=== PATIENT | female | born 1980 | race Caucasian/White ===

== ENCOUNTER 2017-11-22 10:32 | Emergency (ER) | payer MEDICAID, SELFPAY ==
[2017-11-22 10:33] VITALS: BP 157/100; PULSE 128; RESP 20; TEMP 36.9; O2SAT 100; BMI 16.0
--- NOTE | 2017-11-22 11:09 | CT_ITS ---
STUDY: CT BRAIN WITHOUT CONTRAST REASON FOR EXAM: Female, 37 years old. WALSH X 2 WKS, ANXIETY ATTACK, HX-HEART MURMUR. RADIATION DOSAGE (If Supplied By Facility): CTDIvol = ( 44.99 ) mGy, DLP = ( 694.87 ) mGycm TECHNIQUE: Transaxial CT imaging of the brain was performed without administration of intravenous contrast material. Individualized dose optimization techniques were used for this CT. COMPARISON: None. FINDINGS: Normal soft tissue structures. Normal calvarium. Normal size ventricles and extra-axial spaces for the patient's age. Normal white matter tracts of the cerebral hemispheres. Normal basal ganglia and thalami. Normal brainstem. Normal cerebellum. There is no intracranial hemorrhage. There are no findings of an acute ischemic infarction. Normal visualized paranasal sinuses. CT/Brain/Head without Contrast IMPRESSION: Normal unenhanced CT scan of the brain. Electronically Signed: Lex Cavanaugh MD at 12:02 EDT Tel , Service support ,
[2017-11-22] MEDS: 0.9% Normal Saline 1,000 ML 1000 ML IV (11:21)
--- NOTE | 2017-11-22 11:22 | ED.VISSUMM ---
- ER Visit Summary Date of Service: 11/22/17 Chief Complaint: Headache History of Present Illness: The patient is a 37 F who presents with a headache that has been constant for the past 2 weeks. Patient states the pain started as a generalized headache but is now on the right side of her head. Patient states that yesterday she felt a pop in the right frontal area of her head and states her headache became worse after this. Patient states she does have some numbness behind her right ear. Patient admits to some pressure behind her right eye. Patient admits to some nausea and vomiting. Patient denies any extremity weakness or paresthesias. Patient denies any neck pain. He denies any fevers or chills. Physical Examination: Vital signs are stable. Patient is afebrile. Patient is in no acute distress. Pupils are equal, round, and reactive to light bilaterally. Extraocular muscles are intact. Tympanic membranes are clear bilaterally. Oral mucosa is pink and moist. Heart was regular rate and rhythm. Lungs are clear and equal bilaterally. Abdomen is soft and nontender. Cranial nerves II through XII are intact. Strength is 5/5 bilaterally. There are no sensory deficits noted. The remaining physical exam is within normal limits. Test Results: CT scan of the brain was obtained and did not show any acute joint abnormality. Emergency Department Course and Treatment: Patient was given IV fluids, Compazine, and Benadryl here. Patient felt better on reevaluation. Patient was instructed to rest in a dark quiet room. Patient was instructed to follow-up with her primary care physician in 7-10 days. Patient understood and was agreeable with the plan. All questions were answered. Disposition: Discharge home Impression: Headache This note was generated with [employer] dictation software. It may contain incorrect words, spelling, and punctuation that were not noted in review of the chart prior to signing ED Disposition - Plan for ED Patient: Disposition: Home or Assisted Living Chief Complaint: Headache Diagnosis: Headache Instructions: ED Headache Migraine Referrals: John Stubbs [Primary Care Provider] -
[2017-11-22] MEDS: DiphenhydrAMINE 50 MG/ML Syringe 25 MG IV (11:23)
[2017-11-22] MEDS: proCHLORPERazine 10 MG/2 ML Vial IV (11:23)
[2017-11-22 13:22] VITALS: BP 122/77; PULSE 99; RESP 16; O2SAT 100
== END 2017-11-22 13:23 | disposition home or self-care (01) ==
PROVIDERS: Emergency Provider Emergency Medicine; Family Provider Family Medicine; PCP Family Medicine
DX: R51 Headache (principal); R20.2 Paresthesia of skin; R11.2 Nausea with vomiting, unspecified
CPT/HCPCS: 70450; 96361; 96374; 96375; 99283; J7030

== ENCOUNTER 2018-08-11 10:34 | Emergency (ER) | payer MEDICAID, SELFPAY ==
[2018-08-11 10:36] VITALS: BP 137/85; PULSE 92; RESP 14; TEMP 36.4; O2SAT 100; BMI 16.9
--- NOTE | 2018-08-11 11:04 | RAD_ITS ---
STUDY: X-RAY - RIGHT ANKLE REASON FOR EXAM: Female, 37 years old. Pain. No known injury. TECHNIQUE: 3 view(s) of the ankle. COMPARISON: None. FINDINGS: Normal visualized distal tibia and fibula. Normal medial and lateral malleoli. Normal tibiotalar articulation and ankle mortise. Normal visualized talus and calcaneus. The visualized subtalar, talonavicular, calcaneocuboid and tarsal articulations are normal. The soft tissue structures are unremarkable. RAD/Ankle min 3 Views IMPRESSION: Normal x-ray examination of the ankle. Electronically Signed: Navjot Watters MD at 12:55 EST Tel [phone], Service support ,
--- NOTE | 2018-08-11 11:19 | ED.DCSUM_ITS ---
- ER Visit Summary Date of Service: 08/11/18 Chief Complaint: Right ankle pain History of Present Illness: The patient is a 37 F with increasing right ankle pain. The pain is in her right ankle diffusely and she has numbness to the bottom of her foot. This has been gradually getting worse over days. She never had this before. Denies any trauma. Denies any history of blood clots, DVTs, or swelling. Denies any history of arterial disease or coronary disease. Denies any history of smoking. Denies fevers or systemic symptoms. Her symptoms are worse with ambulation and better with elevation and rest. Physical Examination: Afebrile and vital signs unremarkable. The patient appears in no acute distress. Inspection of her right lower extremity is unremarkable. Skin appears normal. No ulcers or discoloration. Good capillary refill and good pulses, symmetric. Good range of motion. Good strength and objective sensation. She does report some subjective numbness to the bottom of her foot. She has pain on palpation diffusely to her right ankle, but it is otherwise unremarkable. No deformities or laxity noted. Test Results: X-ray and TALITA pending. Emergency Department Course and Treatment: I suspect this is just some type of osteoarthritis or mild degenerative process. I am concerned that she has not had trauma and her symptoms seem to be getting worse. We will check x-rays and ABIs. There is nothing to suggest DVT or joint infection. Nothing to suggest a systemic infectious or inflammatory process. ABIs unremarkable. X-ray unremarkable. I have low suspicion for peripheral arterial disease. I suspect this is some type of arthralgia. No other diagnostic testing is indicated. Patient treated with an Aircast and crutches. Anti-inflammatories for pain. Follow-up with primary care. Treatment Plan: As above Disposition: Discharge Impression: 1. Right ankle pain This note was generated with [employer] software. It may contain incorrect words, spelling, and punctuation that were not noted in review of the chart prior to signing ED Disposition - Plan for ED Patient: Chief Complaint: Lower Extremity Injury Referrals: John Stubbs [Primary Care Provider] -
[2018-08-11 12:29] VITALS: BP 140/75; PULSE 81; RESP 16; O2SAT 100
--- NOTE | 2018-08-11 13:12 | ED.DEP ---
ED Disposition - Plan for ED Patient: Chief Complaint: Lower Extremity Injury Instructions: ED RICE Prescriptions: Ibuprofen [Motrin] 800 mg PO TID PRN PRN #20 tab PRN Reason: Pain Referrals: John Stubbs [Primary Care Provider] -
--- NOTE | 2018-08-18 20:23 | LEAS ---
Arterial Study - Arterial Study Arterial Study: This is a 37-year-old female who presents with lower extremity pain. Suspecting the presence of atherosclerotic peripheral arterial occlusive disease or an occlusive arterial process, the patient was brought to the noninvasive vascular laboratory at this time for the purpose of bilateral noninvasive lower extremity arterial assessment. Doppler signal assessment was used to evaluate the pulses at ankle level bilaterally. The posterior tibial and dorsalis pedis pulses were triphasic bilaterally. Segmental limb pressures were obtained at ankle level bilaterally. The right ankle pressure, as determined by posterior tibial pulse, was measured at 152 mmHg. The right ankle pressure, as determined by dorsalis pedis pulse, was measured at 147 mmHg. The left ankle pressure, as determined by posterior tibial pulse, was measured at 149 mmHg. The left ankle pressure, as determined by dorsalis pedis pulse, was measured at 139 mmHg. Pulse?volume recordings were obtained at ankle and digital levels bilaterally. Waveform amplitudes appeared to be satisfactory bilaterally. Resting ankle?brachial indices were calculated bilaterally. The resting right ankle?brachial index was calculated to be 1.02. The resting left ankle?brachial index was calculated to be 1.00. Impression: Based upon the findings of this resting noninvasive lower extremity arterial study, there is no evidence of significant atherosclerotic peripheral arterial occlusive disease in the lower extremities bilaterally. Triphasic waveforms were noted at ankle level bilaterally. Resting ankle-brachial indices were bilaterally normal. In summary, this represents a normal resting noninvasive lower extremity arterial study bilaterally.
--- OUTSIDE RECORDS SUMMARY | 2018-09-27 12:12 | XMS RPT_ITS | Clinical Summary ---
:1980 Author Organization [facility], [facility] Address [address] [place] [address] Phone Care Team Providers Name Role Phone Vasu SILVA, Fredy Chowdhury Unavailable Conditions or Problems Problem Name Problem Onset Status Entry Provider Comment Standard Annotate Code Date Date Description Suture 23372215 Active Fredy Chowdhury Removal of removal (SNOMED CT) / Vasu SILVA suture Laceration S61.210A Active Fredy Chowdhury Laceration without (ICD-10-CM) / Vasu SILVA without foreign body foreign body of right of right index finger index finger without without damage to damage to nail, initial nail, initial encounter encounter Medications Medication Instructions Start Date Stop Date Generic Name NDC Provider Observed no known medications at Medications Administered No information available. Allergies, Adverse Reactions, Alerts Allergy Name Reaction Description Start Date Severity Status Provider VICODIN Critical Active Fredy SILVA Results Date Name Value Unit Range Flag Description Office Visit: [facility]: RIF Laceration FALLRSKASSES No Fall risk assessment Office Visit: [facility]: RIF laceration recheck MEDS REVIEW Done Documentation of current medications (procedure) NKMED T Documentation of current medications (procedure) ORALTOBACUSE Never Tobacco smoking status NHIS SMOK STATUS Never smoker Tobacco use [facility] Plan of Care No information available. Procedures Code Procedure Name Date Entry Date CPT-PREDS Pre-employment drug screen Vital Signs Date Name Value Unit Description BMI (Body Mass Index) 16.56 kg/m2 Body Mass Index [Ratio] Body Temperature 99.3 [degF] temperature E&M BP Diastolic 70 mm[Hg] blood pressure, diastolic - 8462-4 BP Systolic 114 mm[Hg] blood pressure, systolic - 8480-6 Heart Rate 90 /min pulse rate E&M - 8867-4 Height 63.5 [in_us] height E&M - 8302-2 Respiratory Rate 16 /min respiratory rate E&M - 9279-1 Weight Measured 95 [lb_av] weight E&M - 3141-9
--- OUTSIDE RECORDS SUMMARY | 2018-09-27 12:13 | XMS RPT_ITS | Clinical Summary ---
:1980 Author Organization [facility] Address [address] [place] [address] Phone Care Team Providers Name Role Phone Vasu SILVA, Fredy Chowdhury Unavailable Conditions or Problems Problem Name Problem Onset Status Entry Provider Comment Standard Annotate Code Date Date Description Laceration S61.210A Fredy Chowdhury Laceration without (ICD-10-CM Vasu SILVA without foreign body ) foreign body of right of right index [...] Value Unit Range Flag Description Office Visit: [facility]: RIF Laceration MEDS REVIEW Done Documentation of current medications (procedure) NKMED T Documentation of current medications (procedure) FALLRSKASSES No Fall risk assessment SMOK STATUS Never smoker Tobacco use [facility] Plan of Care Type Date Detail Appointment 10:00 AM Fredy SILVA, [address] [place] [address], [place], [address], Appointment 10:[address] [place] [address], [place], [address], Appointment 03:30 PM Fredy SILVA, [address] [place] [address], [place], [address], Procedures Code Procedure Name Date Entry Date CPT-PREDS Pre-employment drug screen Vital Signs Date Name Value Unit Description BMI (Body Mass Index) 16.56 kg/m2 Body Mass Index [Ratio] Body Temperature 98.7 [degF] temperature E&M BP Diastolic 64 mm[Hg] blood pressure, diastolic - 8462-4 BP Systolic 112 mm[Hg] blood pressure, systolic - 8480-6 Heart Rate 92 /min pulse rate E&M - 8867-4 Height 63.5 [in_us] height E&M - 8302-2 Respiratory Rate 15 /min respiratory rate E&M - 9279-1 Weight Measured 95.0 [lb_av] weight E&M - 3141-9
--- OUTSIDE RECORDS SUMMARY | 2018-09-27 12:13 | XMS RPT_ITS | Clinical Summary ---
:1980 Author Organization [facility], [facility] Address [address] [place] [address] Phone Care Team Providers Name Role Phone Vasu SILVA, Fredy Chowdhury Unavailable Conditions or Problems Problem Name Problem Onset Status Entry Provider Comment Standard Annotate Code Date Date Description Suture [id number] Active Fredy Chowdhury Removal of removal (SNOMED [...] Value Unit Range Flag Description Office Visit: [facility]: RIF Laceration F[place]RSKASSES No Fall risk assessment Office Visit: [facility]: RIF laceration recheck MEDS REVIEW Done Documentation of current medications (procedure) NKMED T Documentation of current medications (procedure) ORALTOBACUSE Never Tobacco smoking status NHIS SMOK STATUS Never smoker Tobacco use [facility] Plan of Care Type Date Detail Appointment 03:30 PM Fredy SILVA, [facility], [address], [place], [address], Procedures Code Procedure Name Date Entry Date [...]
--- OUTSIDE RECORDS SUMMARY | 2018-09-27 12:13 | XMS RPT_ITS | Clinical Summary ---
:1980 Author Organization [facility], [facility] Address [address] [place] [address] Phone Care Team Providers Name Role Phone Vasu SILVA, Fredy Chowdhury Unavailable Conditions or Problems Problem Name Problem Onset Status Entry Provider Comment Standard Annotate Code Date Date Description Suture [id number] Active Fredy Chowdhury Removal of removal (SNOMED [...] Value Unit Range Flag Description Office Visit: [facility]: RIF Laceration F[place]RSKASSES No Fall risk assessment Office Visit: [facility]: RIF laceration recheck MEDS REVIEW Done Documentation of current medications (procedure) NKMED T Documentation of current medications (procedure) ORALTOBACUSE Never Tobacco smoking status NHIS SMOK STATUS Never smoker Tobacco use [facility] Plan of Care No information available. Procedures [...]
--- OUTSIDE RECORDS SUMMARY | 2018-09-27 12:13 | XMS RPT_ITS ---
:1980 Author Organization OH[facility] Care Team Providers Name Role Phone John Stubbs Primary Care Unavailable Rodo Albert Attending Unavailable John Stubbs Primary Care Unavailable Jori Johnson Attending Unavailable PROBLEMS PROBLEMS No Problem Records FoundPROCEDURES PROCEDURES No Procedure Records FoundRESULTS RESULTS LOWER EXT ARTERIAL Observed: 08/18/2018 Status: F Source: [place] STUDY 8:27 PM [facility] Cardiovascular Services [address] [place] [address] 08/18/182022 MR#: [id number] Acct: [id number] Name: ROBERTO ZAYAS Rep #: [id number] : 1980 37 From: Curtis Jerez MD Attending Dr: Status: DEP ER Ordering Dr: Date: 08/18/18 Location: ED Sex: F C Admitted: Arterial Study - Arterial Study Arterial Study: This is a 37-year-old female who presents with lower extremity pain. Suspecting the presence of atherosclerotic peripheral arterial occlusive disease or an occlusive arterial process, the patient was brought to the noninvasive vascular laboratory at this time for the purpose of bilateral noninvasive lower extremity arterial assessment. Doppler signal assessment was used to evaluate the pulses at ankle level bilaterally. The posterior tibial and dorsalis pedis pulses were triphasic bilaterally. Segmental limb pressures were obtained at ankle level bilaterally. The right ankle pressure, as determined by posterior tibial pulse, was measured at 152 mmHg. The right ankle pressure, as determined by dorsalis pedis pulse, was measured at 147 mmHg. The left ankle pressure, as determined by posterior tibial pulse, was measured at 149 mmHg. The left ankle pressure, as determined by dorsalis pedis pulse, was measured at 139 mmHg. Pulse volume recordings were obtained at ankle and digital levels bilaterally. Waveform amplitudes appeared to be satisfactory bilaterally. Resting ankle brachial indices were calculated bilaterally. The resting right ankle brachial index was calculated to be 1.02. The resting left ankle brachial index was calculated to be 1.00. Impression: Based upon the findings of this resting noninvasive lower extremity arterial study, there is no evidence of significant atherosclerotic peripheral arterial occlusive disease in the lower extremities bilaterally. Triphasic waveforms were noted at ankle level bilaterally. Resting ankle-brachial indices were bilaterally normal. In summary, this represents a normal resting noninvasive lower extremity arterial study bilaterally. 08/18/182026 <Electronically signed by Curtis Jerez MD> Date Curtis Jerez MD CC: Rodo Albert MD; John Stubbs MD Date Dictated: 08/18/182022 Date Transcribed: 08/18/182022 Embedded Linux Engineer: SOLE William EMERGENCY DEPARTMENT Observed: 08/11/2018 Status: F Source: [place] SUMMARY 3:36 PM [facility] Medical Records Department [address] [place] [address] Emergency Department Summary 08/11/18 1116 MR#: [id number] Acct: [id number] Name: ROBERTO ZAYAS Rep #: [id number] : 1980 37 From: Rodo Albert MD PCP: John Stubbs MD Status: DEP ER - ER Visit Summary Date of Service: 08/11/18 Chief Complaint: Right ankle pain History of Present Illness: The patient is a 37 F with increasing right ankle pain. The pain is in her right ankle diffusely and she has numbness to the bottom of her foot. This has been gradually getting worse over days. She never had this before. Denies any trauma. Denies any history of blood clots, DVTs, or swelling. Denies any history of arterial disease or coronary disease. Denies any history of smoking. Denies fevers or systemic symptoms. Her symptoms are worse with ambulation and better with elevation and rest. Physical Examination: Afebrile and vital signs unremarkable. The patient appears in no acute distress. Inspection of her right lower extremity is unremarkable. Skin appears normal. No ulcers or discoloration. Good capillary refill and good pulses, symmetric. Good range of motion. Good strength and objective sensation. She does report some subjective numbness to the bottom of her foot. She has pain on palpation diffusely to her right ankle, but it is otherwise unremarkable. No deformities or laxity noted. Test Results: X-ray and TALITA pending. Emergency Department Course and Treatment: I suspect this is just some type of osteoarthritis or mild degenerative process. I am concerned that she has not had trauma and her symptoms seem to be getting worse. We will check x-rays and ABIs. There is nothing to suggest DVT or joint infection. Nothing to suggest a systemic infectious or inflammatory process. ABIs unremarkable. X-ray unremarkable. I have low suspicion for peripheral arterial disease. I suspect this is some type of arthralgia. No other diagnostic testing is indicated. Patient treated with an Aircast and crutches. Anti-inflammatories for pain. Follow-up with primary care. Treatment Plan: As above Disposition: Discharge Impression: 1. Right ankle pain This note was generated with Hubba dictation software. It may contain incorrect words, spelling, and punctuation that were not noted in review of the chart prior to signing ED Disposition - Plan for ED Patient: Chief Complaint: Lower Extremity Injury Referrals: John Stubbs [Primary Care Provider] - What to do if you have Problems For any increased pain, shortness of breath, bleeding, nausea or vomiting, chest pain, or any unexpected problems, contact your Primary Care Provider. Call [facility] ([phone]) or report to the closest Emergency Room. Call 911 if necessary. 08/11/18 1536 <Electronically signed by Rodo Albert MD> Date Rodo Albert MD Cosigner Signature (If Indicated): Date CC: John Stubbs MD DISCHARGE INSTRUCTION Observed: 08/11/2018 Status: F Source: [place] 3:36 PM [facility] Medical Records Department [address] [place] [address] Discharge Instruction 08/11/18 1312 MR#: [id number] Acct: [id number] Name: ROBERTO ZAYAS Rep #: [id number] : 1980 37 From: Rodo Albert MD PCP: John Stubbs MD Status: DEP ER ED Disposition - Plan for ED Patient: Chief Complaint: Lower Extremity Injury Instructions: ED RICE Prescriptions: Ibuprofen [Motrin] 800 mg PO TID PRN PRN #20 tab PRN Reason: Pain Referrals: John Stubbs [Primary Care Provider] - What to do if you have Problems For any increased pain, shortness of breath, bleeding, nausea or vomiting, chest pain, or any unexpected problems, contact your Primary Care Provider. Call [facility] ([phone]) or report to the closest Emergency Room. Call 911 if necessary. 08/11/18 1536 <Electronically signed by Rodo Albert MD> Date Rodo Albert MD Cosigner Signature (If Indicated): Date CC: John Stubbs MD ANKLE MIN 3 VIEWS Observed: 08/11/2018 Status: F Source: [place] 11:05 AM [facility] Imaging Services [address] [place] [address] Ankle min 3 Views MR#: [id number] Acct: [id number] Name: ROBERTO ZAYAS Rep #: [id number] : 1980 F 37 From: Navjot Watters MD PCP: John Stubbs MD Status: REG ER Study: Ankle min 3 Views Date of Exam: 08/11/18 Exam# [id number] Ordering Dr: Rodo Albert MD STUDY: X-RAY - RIGHT ANKLE REASON FOR EXAM: Female, 37 years old. Pain. No known injury. TECHNIQUE: 3 view(s) of the ankle. COMPARISON: None. FINDINGS: Normal visualized distal tibia and fibula. Normal medial and lateral malleoli. Normal tibiotalar articulation and ankle mortise. Normal visualized talus and calcaneus. The visualized subtalar, talonavicular, calcaneocuboid and tarsal articulations are normal. The soft tissue structures are unremarkable. RAD/Ankle min 3 Views IMPRESSION: Normal x-ray examination of the ankle. Electronically Signed: Navjot Watters MD at 12:55 EST Tel [phone], Service support , CC: Rodo Albert MD; John Stubbs MD Embedded Linux Engineer: Signed EMERGENCY DEPARTMENT Observed: 11/22/2017 Status: F Source: [place] SUMMARY 1:10 PM [facility] Medical Records Department [address] [place] [address] Emergency Department Summary 11/22/17 1122 MR#: [id number] Acct: [id number] Name: ROBERTO ZAYAS Rep #: [id number] : 1980 37 From: Jori Johnson DO PCP: John Stubbs Status: REG ER - ER Visit Summary Date of Service: 11/22/17 Chief Complaint: Headache History of Present Illness: The patient is a 37 F who presents with a headache that has been constant for the past 2 weeks. Patient states the pain started as a generalized headache but is now on the right side of her head. Patient states that yesterday she felt a pop in the right frontal area of her head and states her headache became worse after this. Patient states she does have some numbness behind her right ear. Patient admits to some pressure behind her right eye. Patient admits to some nausea and vomiting. Patient denies any extremity weakness or paresthesias. Patient denies any neck pain. He denies any fevers or chills. Physical Examination: Vital signs are stable. Patient is afebrile. Patient is in no acute distress. Pupils are equal, round, and reactive to light bilaterally. Extraocular muscles are intact. Tympanic membranes are clear bilaterally. Oral mucosa is pink and moist. Heart was regular rate and rhythm. Lungs are clear and equal bilaterally. Abdomen is soft and nontender. Cranial nerves II through XII are intact. Strength is 5/5 bilaterally. There are no sensory deficits noted. The remaining physical exam is within normal limits. Test Results: CT scan of the brain was obtained and did not show any acute joint abnormality. Emergency Department Course and Treatment: Patient was given IV fluids, Compazine, and Benadryl here. Patient felt better on reevaluation. Patient was instructed to rest in a dark quiet room. Patient was instructed to follow-up with her primary care physician in 7-10 days. Patient understood and was agreeable with the plan. All questions were answered. Disposition: Discharge home Impression: Headache This note was generated with Hubba dictation software. It may contain incorrect words, spelling, and punctuation that were not noted in review of the chart prior to signing ED Disposition - Plan for ED Patient: Disposition: Home or Assisted Living Chief Complaint: Headache Diagnosis: Headache Instructions: ED Headache Migraine Referrals: John Stubbs [Primary Care Provider] - What to do if you have Problems For any increased pain, shortness of breath, bleeding, nausea or vomiting, chest pain, or any unexpected problems, contact your Primary Care Provider. Call [facility] ([phone]) or report to the closest Emergency Room. Call 911 if necessary. 11/22/17 1310 <Electronically signed by Jori Johnson DO> Date Jori Johnson DO Cosigner Signature (If Indicated): Date CC: John Stubbs BRAIN/HEAD WITHOUT Observed: 11/22/2017 Status: F Source: [place] CONTRAST 11:11 AM [facility] Imaging Services [address] [address] Brain/Head without Contrast MR#: [id number] Acct: [id number] Name: ROBERTO ZAYAS Rep #: [id number] : 1980 F 37 From: Lex Cavanaugh PCP: John Stubbs Status: REG ER Study: Brain/Head without Contrast Date of Exam: 11/22/17 Exam# [id number] Ordering Dr: Jori Johnson DO STUDY: CT BRAIN WITHOUT CONTRAST REASON FOR EXAM: Female, 37 years old. WALSH X 2 WKS, ANXIETY ATTACK, HX-HEART MURMUR. RADIATION DOSAGE (If Supplied By Facility): CTDIvol = ( 44.99 ) mGy, DLP = ( 694.87 ) mGycm TECHNIQUE: Transaxial CT imaging of the brain was performed without administration of intravenous contrast material. Individualized dose optimization techniques were used for this CT. COMPARISON: None. FINDINGS: Normal soft tissue structures. Normal calvarium. Normal size ventricles and extra-axial spaces for the patient's age. Normal white matter tracts of the cerebral hemispheres. Normal basal ganglia and thalami. Normal brainstem. Normal cerebellum. There is no intracranial hemorrhage. There are no findings of an acute ischemic infarction. Normal visualized paranasal sinuses. CT/Brain/Head without Contrast IMPRESSION: Normal unenhanced CT scan of the brain. Electronically Signed: Lex Cavanaugh MD at 12:02 EDT Tel , Service support , CC: Jori Johnson DO; John Stubbs Embedded Linux Engineer: Signed ALLERGIES ALLERGIES DATE TYPE / CODE NAME / CODE REACTION SEVERITY SOURCE 08/11/2018 Drug hydrocodone Swelling Unknown [place] Allergy/416 bitartrate/[id number] [facility] 271316([place] [address](RXNORM) [facility] ED CT) Repository 08/11/2018 Drug acetaminophen/F006 Swelling Unknown [place] Allergy/416 241559(RXNORM) [facility] 750700([facility] ED CT) Repository ENCOUNTERS ENCOUNTERS ADMIT/DISCHARGE ACCOUNT ADMITTING ENCOUNTER LOCATION SOURCE NUMBER CLASS 08/11/2018/ [id number] Emergency [place] [facility] ing:ED Repository 11/22/2017/ [id number] Emergency [place] [address] [place] [address] ing:ED Repository PAYERS PAYERS ENCOUNTER GUARANTOR PAYER SUBSCRIBER SOURCE 08/11/2018 ROBERTO A Primary ROBERTO A [place] [id number] OLD Insurance:BUCKEYE JOSETHERDOB: [id number]: Repository [id number]: [phone] [id number] [phone] () Date:[id number] [address] [place] [id number]: 08/11/2018 Secondary NOT GIVENUNK [place] Insurance:SELF PAY [facility] Number: Effective Repository Date:2018-08-11 11/22/2017 ROBERTO A Primary ROBERTO A [place] [id number] Insurance:CARLTON GARCIATHERDOB: [facility] [id number] [facility], [facility] Number: Repository [place] [id number]: [id number] Date:4498-12-33AU [address] ) [address] [place] [id number]: 11/22/2017 Secondary NOT GIVENUNK [place] Insurance:SELF PAY [facility] Number: Effective Repository Date:2017-11-22
== END 2018-08-11 13:58 | disposition home or self-care (01) ==
LOC: ED 11:13
PROVIDERS: Emergency Provider Emergency Medicine; Family Provider Family Medicine; PCP Family Medicine
DX: M25.571 Pain in right ankle and joints of right foot (principal); R20.0 Anesthesia of skin
CPT/HCPCS: 73610; 93922; 99284

== ENCOUNTER 2019-02-04 12:09 | Emergency (ER) | payer SELFPAY ==
[2019-02-04 12:10] VITALS: BP 144/85; PULSE 71; RESP 17; TEMP 36.9; O2SAT 100; BMI 17.3
--- NOTE | 2019-02-04 12:32 | RAD_ITS ---
STUDY: X-RAY - UNILATERAL RIBS ( RIGHT ) WITH CHEST REASON FOR EXAM: Female, 38 years old. Right-sided rib pain. No known injury. TECHNIQUE - RIBS: 4 view(s) of the ribs. TECHNIQUE - CHEST: Single PA view of the chest. COMPARISON: None. FINDINGS - RIBS: Normal visualized ribs without a demonstrated fracture. FINDINGS - CHEST: The lungs are clear and expanded. There is no demonstrated pleural abnormality. Sternal cerclage wires are present from a prior sternotomy. Normal mediastinum and yordy. Normal visualized pulmonary arteries. Normal visualized aortic arch and descending thoracic aorta. Normal visualized thoracic spine. Normal visualized ribs, clavicles, and shoulders. There is no demonstrated abnormality of the visualized soft tissue structures of the upper abdomen. RAD/Ribs Uni Min 3V w/PA Chest IMPRESSION: RIBS: Normal x-ray examination of the ribs. CHEST: Normal x-ray examination of the chest. Electronically Signed: Navjot Watters, at 12:54 EDT , Service support ,
--- NOTE | 2019-02-04 12:36 | ED.DCSUM_ITS ---
- ER Visit Summary Date of Service: 02/04/19 Chief Complaint: Cough and right-sided chest pain History of Present Illness: The patient is a 38 F who presents with right-sided chest pain that began last night. Patient states the pain is sharp and burning. Patient pain is localized to the right lower chest. Patient states the pain is worse with coughing. Patient states the pain is also worse with certain movements. Patient states ibuprofen has been helping. Patient states she has had a cough for the past month. Patient denies any sputum production. Patient admits to subjective chills but denies any fevers. Patient is a smoker. Patient denies any other cardiac or PE risk factors. Physical Examination: Vital signs are stable. Patient is afebrile. Patient is in no acute distress. Oral mucosa is pink and moist. Neck is supple. Trachea is midline. There is no JVD noted. Heart was regular rate and rhythm. Lungs are clear and equal bilaterally. There is reproducible tenderness over the right lower chest wall. There is no bony crepitance or step-off. Abdomen is soft and nontender. Cranial nerves II through XII are intact. There are no focal motor or sensory deficits noted. Test Results: X-rays of the right ribs and chest were obtained. There is no acute rib fracture. There is no acute cardiopulmonary process. Emergency Department Course and Treatment: Patient was given a prescription for Naprosyn. Patient was instructed to follow-up with her primary care physician in 5 to 7 days. She understood and was agreeable with the plan. All questions were answered. Disposition: Discharge home Impression: Right chest wall pain This note was generated with [email or web address] dictation software. It may contain incorrect words, spelling, and punctuation that were not noted in review of the chart prior to signing ED Disposition - Plan for ED Patient: Disposition: Home or Assisted Living Diagnosis: Right-sided chest wall pain Instructions: ED Strain Chest Wall Prescriptions: Naproxen [Naprosyn] 500 mg PO BID PRN PRN #20 tab PRN Reason: Pain Referrals: John Stubbs [Primary Care Provider] - 5-7 Days
[2019-02-04 12:43] VITALS: TEMP 36.6
[2019-02-04 15:09] VITALS: BP 130/68; PULSE 76; RESP 18; O2SAT 97
== END 2019-02-04 15:11 | disposition home or self-care (01) ==
PROVIDERS: Emergency Provider Emergency Medicine; Family Provider Family Medicine; PCP Family Medicine
DX: R07.89 Other chest pain (principal); R05 Cough; R68.83 Chills (without fever); F17.200 Nicotine dependence, unspecified, uncomplicated
CPT/HCPCS: 71101; 99282

== ENCOUNTER 2020-01-28 09:01 | Emergency (ER) | payer MEDICAID, SELFPAY ==
[2020-01-28 09:01] VITALS: BP 158/77; PULSE 75; RESP 18; TEMP 36.6; O2SAT 99; BMI 17.3
--- NOTE | 2020-01-28 09:12 | ED.DCSUM_ITS ---
History of Present Illness Informant: Patient Occurred: Days - 3-4 days Context: Gradual Onset Timing: Continuous Quality of Pain: Aching Location: right foot Current Severity: Moderate Maximum Severity: Severe Worsened by: walking Relieved by: rest Associated Symptoms: Negative for: Parasthesia, Weakness, Loss of Funtion Narrative: 39-year-old female who denies any significant past medical history presents to the emergency department with right foot pain for the last 3 to 4 days. Denies any specific inciting injury or trauma. It is aching. It is diffuse throughout the foot. No swelling or redness or rash. No numbness tingling or weakness. No risk factors for DVT. No constitutional symptoms. No upper respiratory symptoms. She is ambulatory. Denies history of fractures or surgeries to this extremity Tetanus Immunization: Unknown Prior similar symptoms: Yes Recent Illness/Hospitalization: No <Paul Rubi - Last Filed: 01/28/20 10:44> <Dilip Urrutia - Last Filed: 01/28/20 10:55> Chief Complaint: Lower Extremity Injury Past Medical History Prior records reviewed: Yes Past Medical History: None Surgical History: - - Congenital heart surgery at age 1 Lives: Alone Smoking Status: Current some day smoker Alcohol: Occasional Drugs: None <Paul Rubi - Last Filed: 01/28/20 10:44> <Dilip Urrutia - Last Filed: 01/28/20 10:55> - Allergies and Home Meds Allergies/Adverse Reactions: Allergies acetaminophen [From Vicodin] Allergy (Verified 01/28/20 09:06) Swelling hydrocodone bitartrate [From Vicodin] Allergy (Verified 01/28/20 09:06) Swelling Primary Care Physician: John Stubbs MD [Primary Care Provider] - 3-5 Days Review of Systems All systems negative except as indicated General: Denies: Chills, Fever, Malaise Eyes: Denies: Visual changes - bilaterally, Blurred Vision - bilaterally, Diplopia ENT: Denies: Rhinorrhea, Sore throat Cardiovascular: Denies: Chest pain, Palpitations, Heart racing Respiratory: Denies: Dyspnea, Cough, Sputum, Dyspnea on exertion Gastrointestinal: Denies: Abdominal pain, Nausea, Vomiting, Diarrhea Genitourinary: Denies: Dysuria, Hematuria, Frequency Musculoskeletal: Reports: Extremity Pain. Denies: Myalgias, Arthralgias, Neck pain, Back pain, Swelling Skin: Denies: Rash, Abscess, Abrasions, Wounds Neurological: Denies: Headache, Weakness, Parasthesia, Numbness <Paul Rubi - Last Filed: 01/28/20 10:44> Physical Exam Vital Signs/Narrative: Vital Signs Temp Pulse Resp BP Pulse Ox 01/28/20 09:01 97.8 F 75 18 158/77 H 99 Inital Vital Signs reviewed: Yes - Extremity Exam Right Foot: - - Normal inspection of the patient's right foot and ankle. No swelling. No signs of trauma. No rash. No skin changes. She complains of mostly pain on palpation on the plantar aspect. No bony tenderness at the base of the fifth metatarsal. She is able to move all 5 toes normally actively. She is able to fully plantarflex and dorsiflex actively. DP and PT pulse are normal. Capillary refill and sensation of all 5 toes normal. There is no bony tenderness over the ankle leg or knee. She has normal range of motion of her knee actively.. Negative for: Abrasion, Contusion, Deformity, Edema, Hematoma, Limited ROM General: Well nourished, Well developed Head: Normocephalic, Atraumatic Eyes: Perrl, EOMI ENT: No Trauma, Moist Mucous Membranes Neck: Nontender, Full ROM Cardiovascular: Regular rate, Regular rhythm Respiratory: No distress, CTA bilaterally, Chest nontender Abdomen: Soft, Nontender, Nondistended, Normal bowel sounds, No masses Back: Nontender, Paraspinal Tenderness, Positive SLR - Right, Negative SLR - Left. Negative for: CVA Tenderness - Right, CVA Tenderness - Left, Spinal Tenderness Skin: Normal color, No rash, No Trauma Neurological: Alert, Oriented x3 Psychological: Normal affect, Normal Mood <Paul Rubi - Last Filed: 01/28/20 10:44> Vital Signs/Narrative: Vital Signs Temp Pulse Resp BP Pulse Ox 01/28/20 09:01 97.8 F 75 18 158/77 H 99 <Dilip Urrutia - Last Filed: 01/28/20 10:55> Diagnostic/Tx/Re-eval Impressions Foot X-Ray 01/28/20 09:12 IMPRESSION: Hallux valgus deformity. Electronically Signed: Navjot Watters, at 9:27 EDT , Service support , 01/28/20 09:12 Xray Foot [Foot min 3 Views] [RAD] Stat - Medical Decision Making X-ray of the patient's foot shows no acute findings. At this time we do feel that the patient's pain could be secondary to some sciatica as she has a positive straight leg raise. She has no signs or symptoms of cauda equina syndrome. She will be given crutches. We will start her on Neurontin. Her first dose was prescribed in the emergency department. We will refer the patient for follow-up she was given return precautions and we discussed supportive care with her as well and she will be discharged. <Paul Rubi - Last Filed: 01/28/20 10:44> - Medical Decision Making Seen and evaluated independently and in conjunction with physician nurse practitioner physicians assistant. Agree with notes above unless documented otherwise. Patient seems to be having paresthesias in an L5 distribution of I had to pick 1 that is the majority of her symptoms. It does not go all the way up to her knee, but she does have some discomfort with superficial palpation above the ankle. She was much worse with a ipsilateral straight leg raise, negative contralateral straight leg raise. Normal reflexes normal strength. She thinks crutches will help, she does not have any at home from her last episode of this, we will place her on Neurontin since I suspect this is either radiculopathy or peripheral neuropathy, and she can follow-up as an outpatient. I suspect an MRI of her low back might help diagnose where the issue is. That does not need to be done emergently since she has no acute foot drop or signs or symptoms of cauda equina syndrome. <Dilip Urrutia - Last Filed: 01/28/20 10:55> ED Disposition <Paul Rubi - Last Filed: 01/28/20 10:44> <Dilip Urrutia - Last Filed: 01/28/20 10:55> - Plan for ED Patient: Disposition: Home or Assisted Living Diagnosis: Right foot pain, Sciatica of right side, Paresthesia of right foot Instructions: ED LUMBAR RADICULOPATHY, ED Strain Muscle Ext, ED RICE Prescriptions: Gabapentin [Neurontin] 300 mg PO TID #89 cap Prescription Printed Referrals: John Stubbs MD [Primary Care Provider] - 3-5 Days
--- NOTE | 2020-01-28 09:12 | RAD_ITS ---
STUDY: X-RAY - RIGHT FOOT CLINICAL: Female, 39 years old. PAIN ACROSS TOP OF RIGHT FOOT. NO KNOWN INJURY. TECHNIQUE: 3 view(s) of the foot. COMPARISON: None. FINDINGS: Normal talus, calcaneus, and tarsal bones. Normal visualized subtalar, talonavicular, calcaneocuboid, tarsal and tarsometatarsal articulations. Normal metatarsi. There is degenerative arthrosis of the metatarsophalangeal joint of the hallux with a hallux valgus deformity. Normal tibial and fibular sesamoid bones. Normal interphalangeal joint of the great toe. Normal phalanges of the great toe. Normal second through fifth metatarsophalangeal joints. Normal interphalangeal joints and phalanges of the lesser toes. The soft tissue structures are unremarkable. RAD/Foot min 3 Views IMPRESSION: Hallux valgus deformity. Electronically Signed: Navjot Wattres, at 9:27 EDT , Service support ,
[2020-01-28] MEDS: Gabapentin 300 MG Capsule PO (11:33)
== END 2020-01-28 11:33 | disposition home or self-care (01) ==
PROVIDERS: Emergency Provider Physician Assistant Medical; PCP Family Medicine
DX: M79.671 Pain in right foot (principal); M54.31 Sciatica, right side; M20.11 Hallux valgus (acquired), right foot; F17.200 Nicotine dependence, unspecified, uncomplicated
CPT/HCPCS: 73630; 99284

== ENCOUNTER 2020-02-01 19:08 | Emergency (ER) | payer MEDICAID, SELFPAY ==
[2020-02-01 19:09] VITALS: BP 175/121; PULSE 128; RESP 18; TEMP 36.1; O2SAT 97; BMI 17.7
--- NOTE | 2020-02-01 19:19 | ED.VIS.GEN ---
History of Present Illness Chief Complaint: Mental Health Detail of Chief Complaint: Inappropriate laugh Informant: Patient, - - Law enforcement pink slipped patient. Did speak with officer who is completing the pink slip/form. He is pink slipped in her because she was sobbing, hitting her head against the wall and states she was going to hurt someone Limited by: - - Believed to be under the influence of stimulants Onset: Today Context: Sudden Onset Timing: Continuous Quality: Inappropriate laughter, crying, hyperactivity Location: Not applicable Current Severity: Moderate Maximum Severity: Severe Worsened by: When asked questions Relieved by: Nothing Associated Symptoms: Nothing Narrative: Patient is a 39-year-old woman who is presently residing [facility]. She admits to being under stress. She states that she was forced to use ice 2 days ago and yesterday . She then began to cry and laugh. When asked if she has children she again began to cry and laugh inappropriately she denied smoking and alcohol use. When asked if she used drugs she looked at me and began to cry and laugh. Furthermore, she stated she does not know how to answer that. Then she admitted to being forced to use/take ice. Review of prior records indicates patient has no history of mental health issues. Furthermore, she is on no psychotropic medication or antidepressants. Prior similar symptoms: No Recent Illness/Hospitalization: No - Past Medical History (1) No significant past medical history Status: Acute Past Medical History - Allergies and Home Meds Allergies/Adverse Reactions: Allergies acetaminophen [From Vicodin] Allergy (Verified 02/01/20 19:15) Swelling hydrocodone bitartrate [From Vicodin] Allergy (Verified 02/01/20 19:15) Swelling Primary Care Physician: John Stubbs MD [Primary Care Provider] - [facility] [STAFF PHYSICIAN] - 2 Days Prior records reviewed: Yes Surgical History: noncontributory, - - Congenital heart surgery at age 1 Lives: Alone Smoking Status: Never smoker Alcohol: None Drugs: - - Ice Review of Systems General: Denies: Chills, Fever ENT: Denies: Rhinorrhea, Sore throat Cardiovascular: Denies: Chest pain, Palpitations Respiratory: Denies: Dyspnea, Cough, Sputum Gastrointestinal: Denies: Abdominal pain, Nausea, Vomiting, Diarrhea, Melena, Hematochezia Genitourinary: Denies: Dysuria, Hematuria, Frequency Musculoskeletal: Denies: Myalgias, Arthralgias, Neck pain, Back pain, Swelling, Extremity Pain, -, - Neurological: Denies: Headache, Parasthesia, Numbness Psych: Reports: Anxiety, - - Thoughts of harming self, under stress, denies suicidal thoughts or ideation.. Denies: Depression, Suicidal thoughts Hematologic: Denies: Easy bruising, Easy bleeding Allergy: Denies: Uticaria, Swelling of the mouth Physical Exam Vital Signs/Narrative: Vital Signs Temp Pulse Resp BP Pulse Ox 02/01/20 19:09 97 F L 128 H 18 175/121 H 97 Inital Vital Signs reviewed: Yes General: Well nourished, Well developed, No Acute Distress - Patient is under no distress. She cries and laughs inappropriately to questions asked. Head: Normocephalic, Atraumatic Eyes: Perrl, EOMI ENT: Moist mucous membranes, No rhinorrhea Neck: Supple, Nontender Cardiovascular: Regular rate, Regular rhythm, No murmurs Respiratory: No distress, CTA bilaterally, Chest nontender Abdomen: Soft, Nontender, Nondistended, Normal bowel sounds Back: Nontender, Normal Inspection. Negative for: CVA tenderness Extremities: Nontender, No edema. Negative for: Tenderness, Edema, Calf Tenderness Skin: Normal color, No rash, No Trauma. Negative for: Cyanosis, Diaphoresis, Jaundice Neurological: Alert, Oriented x3, Cranial nerves II-XII grossly intact, Normal Strength, Normal Sensation Psychological: Tearful. Negative for: Normal affect, Normal Mood Diagnostic/Tx/Re-eval Laboratory Results 02/01/20 02/01/20 02/01/20 19:15 19:15 19:25 WBC 8.1 RBC 4.92 Hgb 12.8 Hct 41.3 MCV 83.9 MCH 26.0 L MCHC 31.0 L RDW Std Deviation 44.5 H RDW Coeff of Shayan 14.6 Plt Count 268 MPV 10.4 Immature Gran % (Auto) 0.200 Neut % (Auto) 80.5 H Lymph % (Auto) 14.4 L Dickey % (Auto) 4.2 Eos % (Auto) 0.1 Baso % (Auto) 0.6 Absolute Neuts (auto) 6.5 Absolute Lymphs (auto) 1.16 Nucleated RBC % 0 Sodium Potassium Chloride Carbon Dioxide Anion Gap BUN Creatinine Estim Creat Clear Calc Est GFR (MDRD) Af Amer Est GFR (MDRD) Non-Af BUN/Creatinine Ratio Glucose Calcium Total Bilirubin AST ALT Alkaline Phosphatase Total Protein Albumin Globulin Albumin/Globulin Ratio Serum , Qual Urine Color Yellow Urine Clarity Sl. Cloudy Urine pH 6.0 Ur Specific [place] 1.020 Urine Protein 30 H Urine Glucose (UA) Normal Urine Ketones 15 H Urine Occult Blood Negative Urine Nitrite Negative Urine Bilirubin Negative Urine Urobilinogen 1 H Ur Leukocyte Esterase 25 H Urine RBC 0 SEEN Urine WBC 0-5 SEEN Ur Squamous Epith Cells 0-5 SEEN Urine Bacteria RARE Urine Mucus 1+ Urine Opiates Screen NEGATIVE Urine Methadone Screen NEGATIVE Ur Barbiturates Screen NEGATIVE Ur Phencyclidine Scrn NEGATIVE Ur Amphetamines Screen POSITIVE H U Methamphetamin-MDMA NEGATIVE U Benzodiazepines Scrn NEGATIVE Urine Cocaine Screen NEGATIVE U Cannabinoids Screen NEGATIVE Ur Drug Screen Comment 02/01/20 02/01/20 19:25 19:25 WBC RBC Hgb Hct MCV MCH MCHC RDW Std Deviation RDW Coeff of Shayan Plt Count MPV Immature Gran % (Auto) Neut % (Auto) Lymph % (Auto) Dickey % (Auto) Eos % (Auto) Baso % (Auto) Absolute Neuts (auto) Absolute Lymphs (auto) Nucleated RBC % Sodium 140 Potassium 3.5 Chloride 107 Carbon Dioxide 22.0 Anion Gap 11 BUN 16 Creatinine 1.01 Estim Creat Clear Calc 54.39 Est GFR (MDRD) Af Amer 78 Est GFR (MDRD) Non-Af 64 BUN/Creatinine Ratio 15.8 Glucose 123 H Calcium 9.1 Total Bilirubin 0.40 AST 17 ALT 20 Alkaline Phosphatase 81 Total Protein 8.5 H Albumin 4.6 Globulin 3.9 Albumin/Globulin Ratio 1.2 Serum , Qual NEGATIVE Urine Color Urine Clarity Urine pH Ur Specific [place] Urine Protein Urine Glucose (UA) Urine Ketones Urine Occult Blood Urine Nitrite Urine Bilirubin Urine Urobilinogen Ur Leukocyte Esterase Urine RBC Urine WBC Ur Squamous Epith Cells Urine Bacteria Urine Mucus Urine Opiates Screen Urine Methadone Screen Ur Barbiturates Screen Ur Phencyclidine Scrn Ur Amphetamines Screen U Methamphetamin-MDMA U Benzodiazepines Scrn Urine Cocaine Screen U Cannabinoids Screen Ur Drug Screen Comment Only abnormality found is amphetamines on tox screen. This would explain patient's behavior. Will treat with p.o. Valium and reassess. - Medical Decision Making In light of hyperactivity, inappropriate response to questions with history of illicit drug use will obtain a tox screen. Blood work was obtained to rule out infectious or metabolic etiology of her symptoms. Case management was consulted as well. Presently, there is no concern for depression or suicidal ideation. It is my professional medical opinion based on the fact that this behavior started after using ice suspect this is in response to illicit drug use. Since the only abnormal laboratory finding is amphetamines and tox screen she was treated with Valium and will reassess. Patient was assessed at 10/02/2003. She is no longer crying. She still laughs inappropriately but not to the severity she did when she came in. ED Disposition - Plan for ED Patient: Diagnosis: Drug-induced psychotic disorder with hallucinations Instructions: ED AMPHETAMINE ABUSE, ED Psychosis Referrals: John Stubbs MD [Primary Care Provider] - [facility] [STAFF PHYSICIAN] - 2 Days
[2020-02-01 19:26] LABS: Red Blood Cells-Urine 0 SEEN /hpf (0-5)
--- NOTE | 2020-02-01 19:33 | ED.RN ---
Pt laughing uncontrollable. unable to get much out of her. Pt did say she wanted to hurt her room mate. denies any harm to self
[2020-02-01 19:40] LABS: Absolute Lymphocyte Count 1.16 X10^3/uL (0.83-4.51); Absolute Neutrophil Count 6.5 X10^3/uL (2.0-7.7); Basophil# 0.05 X10^3/uL; Basophil% 0.6 % (0-1); Eosinophil# 0.01 X10^3/uL; Eosinophils% 0.1 % (0-5); Hematocrit 41.3 % (37-47); Hemoglobin 12.8 g/dL (12.0-15.0); Lymphocyte # 1.16 X10^3/ul (4.0); Lymphocyte % 14.4 % (19-41); Mean Corpuscular Volume 83.9 fL (81-99); Mean Platelet Vol. 10.4 fl (6.2-12.0); Monocyte# 0.34 X10^3/uL; Monocyte% 4.2 % (0-10); NRBC Flagged by Analyzer 0 % (0-5); Neutrophil % 80.5 % (47-70); Platelet Count 268 K/mm3 (150-450); RBC Distribution Width CV 14.6 % (11.6-14.6); RBC Distribution Width SD 44.5 fl (35.1-43.9); Red Blood Count 4.92 M/mm3 (4.2-5.4); White Blood Count 8.1 K/mm3 (4.4-11.0)
[2020-02-01 19:51] LABS: Color, Urine Yellow (Yellow); Glucose, Dipstick Normal (Normal); Ketone-Dipstick 15 mg/dl (Negative); Leukocyte Esterase-Dipstick 25 /ul (Negative); Nitrite-Dipstick Negative (Negative); Occult Blood-Urine Negative /ul (Negative); Protein-Dipstick 30 mg/dl (Negative); Urine Bilirubin Dipstick Negative (Negative); Urine Clarity Sl. Cloudy (Clear); Urine Urobilinogen 1 mg/dl (Normal)
[2020-02-01 19:58] LABS: Mucous, Urine 1+ /hpf (<or=2+); Squamous Epithelial Cells - UA 0-5 SEEN /hpf (5-10); White Blood Cells 0-5 SEEN /hpf (0-5)
[2020-02-01 19:59] LABS: ALB/GLOB Ratio 1.2 RATIO (0.9-2.4); AST(SGOT) 17 U/L (15-37); Alanine Aminotransfer ALT/SGPT 20 U/L (13-56); Albumin, Serum 4.6 g/dL (3.2-5.0); Alkaline Phosphatase 81 U/L (45-117); Anion Gap 11 (5-15); BUN 16 mg/dL (7-18); BUN/Creat Ratio 15.8 RATIO (10-20); Calcium,Total 9.1 mg/dL (8.5-10.1); Chloride 107 mmol/L (98-107); Creatinine, Serum 1.01 mg/dL (0.55-1.02); EST Glomerular Filtration Rate 64 mL/min (>60); Est Glom Filt Rate - Afr Amer 78 mL/min (>60); Estimated Creatinine Clearance 54.39 ml/min; Globulin 3.9 g/dL (2.2-4.2); Glucose 123 mg/dL (74-106); Potassium 3.5 mmol/L (3.5-5.1); Protein, Total 8.5 g/dL (6.4-8.2); Sodium Level 140 mmol/L (136-145)
[2020-02-01 19:59] LABS: Bacteria RARE /hpf (None Seen)
[2020-02-01 20:02] LABS: Internal QC Validated? YES +Cl - CLEAR BKGD; Pregnancy, Serum, hCG Quali. NEGATIVE Negative
[2020-02-01 20:02] LABS: Amphetamine Urine VISTA POSITIVE (<1000 ng/mL); Barbiturate Urine VISTA NEGATIVE (< 200 ng/mL); Benzodiazepine Urine VISTA NEGATIVE (< 200 ng/mL); Cocaine Urine VISTA NEGATIVE (< 300 ng/mL); Ecstacy Urine VISTA NEGATIVE (< 500 ng/mL); Methadone Urine VISTA NEGATIVE (< 300 ng/mL); PCP Urine VISTA NEGATIVE (< 25 ng/mL); THC Urine VISTA NEGATIVE (< 50 ng/mL); Vista UDS pH Range 5
[2020-02-01 20:08] VITALS: RESP 17
--- NOTE | 2020-02-01 20:11 | ED.RN ---
CALLED [facility] TO SEE THIS PT, NAT IS [employer], REPORT FAXED
[2020-02-01] MEDS: diazePAM 5 MG Tablet 2.5 MG PO (20:19)
[2020-02-01 20:38] VITALS: BP 124/72; PULSE 75; RESP 17; O2SAT 100
== END 2020-02-01 21:21 | disposition home or self-care (01) ==
PROVIDERS: Emergency Provider Emergency Medicine; PCP Family Medicine
DX: F15.951 Other stimulant use, unspecified with stimulant-induced psychotic disorder with hallucinations (principal)
CPT/HCPCS: 36415; 80053; 80307; 80320; 81001; 84703; 85025; 99285; G0480